=== PATIENT | male | born 1995 | race Caucasian/White ===

== ENCOUNTER 2017-01-31 22:26 | Emergency (ER) | payer BC ==
[2017-01-31] MEDS ORDERED: DIPH,PERTUS(ACELL)TETVAC-LF 0.5 ML VIAL IM ONE (22:49)
--- NOTE | 2017-01-31 23:33 | ED ---
Wound/Laceration HPI - General Chief Complaint: Wound/Laceration Stated Complaint: L arm laceration Time Seen by Provider: 01/31/17 22:36 Source: patient Mode of arrival: ambulatory Limitations: no limitations - History of Present Illness Initial Comments: 21-year-old male patient presented to emergency department today for evaluation of multiple linear lacerations to the left upper arm. Patient states that he was shaving his arms, states he was going fast, but did not realize the razor was cutting him. He states this occurred approximately an hour prior to arrival. He states the bleeding is controlled. He denies any numbness or tingling to his arm. He denies any other injuries. He denies to myself and nursing staff any self-harm or suicidal ideation. Denies any history of self- harm. Denies any history of mental health conditions. Patient denies any headache, neck pain, back pain, chest pain, shortness of breath, dizziness, weakness, abdominal pain, nausea, vomiting, or difficulties with bowel movements or urination. Mother and another family member are with the patient they deny any concerns for his mental health. - Related Data Home Medications Medication Instructions Recorded Confirmed No Known Home Medications [No 01/31/17 01/31/17 Known Home Medications] Allergies Allergy/AdvReac Type Severity Reaction Status Date / Time No Known Allergies Allergy Verified 01/31/17 22:34 Review of Systems ROS Statement: Those systems with pertinent positive or pertinent negative responses have been documented in the HPI. ROS Other: All systems not noted in ROS Statement are negative. Past Medical History Past Medical History: No Reported History History of Any Multi-Drug Resistant Organisms: None Reported Past Surgical History: No Surgical Hx Reported Past Psychological History: No Psychological Hx Reported Smoking Status: Never smoker Past Alcohol Use History: None Reported Past Drug Use History: None Reported General Exam Limitations: no limitations General appearance: alert, in no apparent distress, other (Well-developed, well- nourished male patient in no acute distress. Vital signs upon presentation were temperature 98.6F, pulse 100, respirations 20, blood pressure 147/90, pulse ox 97% on room air.) Head exam: Present: atraumatic, normocephalic, normal inspection Eye exam: Present: normal appearance, PERRL, EOMI. Absent: scleral icterus, conjunctival injection, periorbital swelling Respiratory exam: Present: normal lung sounds bilaterally. Absent: respiratory distress, wheezes, rales, rhonchi, stridor Cardiovascular Exam: Present: regular rate, normal rhythm, normal heart sounds. Absent: systolic murmur, diastolic murmur, rubs, gallop, clicks Extremities exam: Present: full ROM, normal capillary refill, other (Multiple linear, clean cut, parallel lacerations of varying depth noted to the left upper arm. Starting proximally and proceeding distally laceration #1 is 4 cm in length, laceration #2 is 2 cm in length, laceration #3 and #4 are 3 cm in length. There are also multiple very superficial laceration, or scratches between each of these deeper lacerations.). Absent: tenderness, pedal edema, joint swelling, calf tenderness Neurological exam: Present: alert, oriented X3, CN II-XII intact Psychiatric exam: Present: normal affect, normal mood, other (Patient repeatedly denies suicidal ideation, homicidal ideation, or self-harm.). Absent : depressed, anxious, flat affect, homicidal ideation, suicidal ideation Skin exam: Present: warm, dry, intact, normal color. Absent: rash Course Vital Signs 01/31/17 01/31/17 22:30 23:42 Temperature 98.6 F 97 F L Pulse Rate 100 74 Respiratory 20 18 Rate Blood Pressure 147/90 124/67 O2 Sat by Pulse 97 97 Oximetry Procedures - Laceration Laceration #1 Consent Obtained: verbal consent Time Out Performed: Yes Indication: laceration Site: upper extremity (Left upper arm. First laceration, most proximal. ) Size (cm): 4 Description: linear Depth: simple, single layer Anesthetic Used: lidocaine 1% Anesthesia Technique: local infiltration Amount (mls): 4 Pre-repair: irrigated extensively Type of Sutures: nylon Size of Sutures: 5-0 Number of Sutures: 8 Technique: simple, interrupted Patient Tolerated Procedure: well, no complications Laceration #2 Site: upper extremity (Left upper arm. ) Size (cm): 2 Description: linear Depth: simple, single layer Anesthetic Used: lidocaine 1% Anesthesia Technique: local infiltration Amount (mls): 3 Pre-repair: irrigated extensively Type of Sutures: nylon Size of Sutures: 5-0 Number of Sutures: 3 Technique: simple, interrupted Patient Tolerated Procedure: well, no complications Laceration #3 Indication: laceration Site: upper extremity (Left upper arm.) Size (cm): 3 Description: linear Depth: simple, single layer Anesthetic Used: lidocaine 1% Anesthesia Technique: local infiltration Amount (mls): 4 Pre-repair: irrigated extensively Type of Sutures: nylon Size of Sutures: 5-0 Number of Sutures: 5 Technique: simple, interrupted Patient Tolerated Procedure: well, no complications Laceration #4 Indication: laceration Site: upper extremity (Left upper arm) Size (cm): 3 Description: linear Depth: simple, single layer Anesthetic Used: lidocaine 1% Anesthesia Technique: local infiltration Amount (mls): 4 Pre-repair: irrigated extensively Type of Sutures: nylon Size of Sutures: 5-0 Number of Sutures: 5 Technique: simple, interrupted Patient Tolerated Procedure: well, no complications Medical Decision Making - Medical Decision Making 21-year-old male patient presented for evaluation of multiple lacerations to left upper arm. Patient states that he sustained lacerations while attempting to shave his arm with a store-bought multiple bladed razor. Did express my concerns to the patient that his story was not consistent with the injury. Did repeatedly ask him about self-harm, he denied. Repeatedly asked him about suicidal ideation he denied. Questioned extensively regarding mental health history patient and family deny any history. Mother and grandmother are present in the room and deny any concerns regarding this. Lacerations were repaired as documented. Patient was updated on his tetanus vaccine. Bacitracin was applied and wounds were dressed by nursing staff. I did discuss with patient that I would provide him with mental health information in his discharge instructions, a number for the [facility] organization, a list of mental health services in the area, as well as numbers for the crisis line should he need any help. I did tell him that we're available 24 hours for any mental health needs and that visits are confidential. Patient verbalized understanding. I instructed him to return here for removal of sutures in 7 days. I educated regarding signs or symptoms of infection. I instructed him to keep wounds clean and dry. Instructed to return for any new, worsening, or concerning symptoms. Patient verbalizes understanding and agreement with this plan. Disposition Clinical Impression: Multiple lacerations Disposition: HOME SELF-CARE Condition: Good Instructions: Care For Your Stitches (ED), Laceration (ED), Suicide Prevention for Adults (ED) Additional Instructions: Gently wash lacerations twice daily with warm soapy water. Keep wounds clean and dry. Keep covered if doing dirty work. Return here in 7 days to have stitches removed. Monitor for signs or symptoms of infection including redness , swelling, warmth, drainage of pus, fever, or chills. Follow up with her primary care physician for recheck in 1-2 days if he had any concerns. Return here immediately for any new, worsening, or concerning symptoms. If you feel like you need someone to talk to or need help please call [facility] for mental health services at . If necessary you can return to the emergency department for mental health services. All visits are confidential and private. Referrals: Bertha Storey DO [Primary Care Provider] - 1-2 days Time of Disposition: 23:33
[2017-01-31 23:43] VITALS: BP 124/67; PULSE 74; RESP 18; TEMP 97
== END 2017-01-31 23:43 | disposition home or self-care (01) ==
LOC: EC 22:26
DX: S41.112A Laceration without foreign body of left upper arm, initial encounter (principal); Z23 Encounter for immunization; W26.8XXA Contact with other sharp object(s), not elsewhere classified, initial encounter; Y93.89 Activity, other specified
CPT/HCPCS: 12004; 90471; 90715; 99282